=== PATIENT | male | born 1955 | race Caucasian/White ===

== ENCOUNTER 2016-06-18 11:28 | Inpatient (IN) | payer MEDICARE ==
[~2016-06-18] VITALS: Ht 168.9 cm; Wt 54.5 kg
--- NOTE | 2016-06-18 11:31 | NUR ---
PROVIDER DR. SOMMER AT BEDSIDE.
[2016-06-18] MEDS ORDERED: NORMAL SALINE 1,000 ML IV ONE ×2 (11:33→14:15)
--- OUTSIDE RECORDS SUMMARY | 2016-06-18 11:36 | XMS REPORT | Continuity of Care Document ---
Author Author Glenis Rousseau Glenis Address Unknown Phone Unavailable Care Team Providers Care Nursing Technician Name Role Phone [employer] Unavailable Unavailable Problems Problem Status Onset Date Classification Date Reported Comments Source Encounter for general adult medical examination without abnormal findings 06/09/2016 Diagnosis 06/10/2016 [facility] Abnormal weight loss 2016 Diagnosis 06/10/2016 [facility] Dysuria 06/09/2016 Diagnosis 06/10/2016 [facility] Unspecified acquired deformity of hand, unspecified hand 06/09/2016 Diagnosis 06/10/2016 [facility] [place] Discharge Diagnosis: Acute eczema 05/26/2016 Diagnosis [facility] Discharge Diagnosis: Encounter to establish care 05/26/2016 Diagnosis 05/27/2016 [facility] Discharge Diagnosis: Abnormal loss of weight 05/26/2016 Diagnosis 05/27/2016 [facility] Problem 06/10/2016 Family [facility], [facility] Medications Medication Details Route Status Patient Instructions Ordering Provider Order Date Source Advil PM </br>2 Tab, AT BEDTIME, PO, Maintenance, 05/26/16 7:36:01 CDT, 0 Number of Refills Active [facility] Betamethasone 0.5 MG/ML / Clotrimazole 10 MG/ML Topical Cream [Lotrisone] </br>1 Apply, BID, TOP, 14 Day(s), 45 gm, 06/09/16, Acute, 05/26/16 7:55:23 CDT , 0 Number of Refills, 0, Route to Pharmacy Electronically, [facility]/pharmacy #[id number], [id number] Inactive [facility] Allergies, Adverse Reactions, Alerts Substance Category Reaction Severity Reaction type Status Date Reported Comments Source Iodine Assertion Drug [facility] Immunizations Immunization Date Given Site Status Last Updated Comments Source diphtheria/pertussis, acel/tetanus Tdap 02/13/2013 Immunization, History diphtheria /pertussis, acel/[facility]anus [facility], [facility] Results Order Name Results Value Reference Range Date Interpretation Comments Source ANAPRO JUAN LUIS Pattern. See Scanned Report 06/15/2016 N [facility] RA RA Negative Negative 06/09/2016 N [facility] ESR. Sed Rate 3 mm/hr 0 - 15 06/09/2016 N [facility] A1C eAverage Glu 105 06/09/2016 NA Estimated average glucose has a linear relationship with Hgb A1c and is intended to simplify the discussion of glycemic control with patients.
[facility] CHEM12 eGFR () >60 mL/min >=60 2016 N Estimated GFR for an calculated using MDRD study equation. Result Verified by Discern Expert.
[facility] CHEM12 Albumin Level 4.4 gm/ dL 3.4 - 5.0 06/09/2016 N [facility] TSH TSH 0.843 uIU/mL 0.354 - 5.720 06/09/2016 N [facility] PSA, Total Only PSA, Total 4.94 ng/mL 0.00 - 4.00 2016 HI The reference interval is less than 0.2 ng/mL after radical prostatectomy if there is no residual disease. Values greater than or equal to 0.2 ng/mL are considered evidence of biochemical recurrence of cancer in men after prostatectomy. The lower limit of detection is 0.14 ng/mL. The Siemens [employer] Innov[employer] PSA chemiluminescent immunoassay was used. Results obtained with different assay methods cannot be used interchangeably.
[facility] P7 LDLC 28 60 - 99 06/09/2016 LOW [facility] P7 Chol/HDL 1.3 0.0 - 5.0 06/09/2016 N [facility] CRP C Reactive Prot <0.29 mg/ dL 0.00 - 0.90 06/09/2016 N [facility] -RBC Morphology RBC Morph Normal Normal 06/09/2016 N Discern [facility]
RBC morphology is graded as 1, 2 , or 3 indicating a level of abnormality.
1=few /slight
2=moderate
3=marked/many
[facility] -Auto Diff Atypical Lymph 70 06/09/[address] [facility] CBC with Diff Hgb 16.5 gm/dL 13.0 - 17.0 06/09/[address] [facility] Office/Clinic Notes Office/Clinic Notes [facility] [address] [address] [phone] PATIENT: EDUAR HARPER MR #: [id number] : 1955 DATE SEEN: 05/26/2016 Chief Complaint Patient states he is here for a rash on right leg. Patient states he is also here for weight loss. History of Present Illness The patient is a 60-year-old male here for establish care. The patient states that he has a rash on his legs that started about a few weeks ago. It is itchy. He started to put antifungal cream on it. He said that it started to go down a little bit and stopped the itching, but it is still there and it seems to be spreading. The patient states he tries to lotion himself, but the rash continues to grow. The patient also states that he has been losing weight. Usually, he gains weight during the wintertime and then loses weight during the summer, but he has actually lost 30 pounds this winter. The patient states that when he eats, an hour later it goes through. This happened to him 12 years ago and they told him he had a thyroid issue. The patient is concerned that this may be it or something else is making him lose weight unintentionally. Review of Systems Constitutional: Denies fever, chills. Positive weight loss. Cardiovascular: Denies chest pains or palpitations. Pulmonary: Denies shortness of breath or cough. Gastrointestinal: Denies abdominal pain, nausea, vomiting, diarrhea, or constipation. Genitourinary: Denies dysuria or frequency. Rash: Positive rash. Allergies iodine Current Medications Advil PM (diphenhydrAMINE-ibuprofen), 2 Tab, Oral, At bedtime Problems and Past Medical History Active No Chronic Problems Family History Diabetes..... Mother Heart disease.. Grandparent High blood pressure.. Father Liver cancer Grandparent Renal cancer Grandparent Renal failure Mother Procedure History oral surgery at 05/20/2016. gallbladder at 1992. hernia repair at 2009. vein removal at 1976. Tonsillectomy and adenoidectomy; younger than age 11 Social History Tobacco/Nicotine Usage: Current Smoking Status: Smokes daily Tobacco/Nicotine Type: Cigarettes Packs Per Day: 1.5 Number of Years-Tob Use: 9 Total Pack Years: 13.5 Recreational Drug Use: Denies Education Attained: College Physical Examination TEMP BP Pulse RR MAP O2 Sat 124/68 99 18 86.67 100 Oxygen Therapy: Room air Weight Height BMI BSA 53.9 kg (118.83 lbs) 170.2 cm 18.6 kg/m2 1.5963 m2 Scale: Standing digital Skin: Positive erythematous and maculopapular rash. Negative vesicles. Negative discharge. Positive dry skin. Positive multiple circular form in right calf. Negative excoriations. Impression 1. Encounter to establish care (Z76.89). 2. Acute eczema (L30.9). 3. Abnormal loss of weight (R63.4). Plan Medication changes this visit: New Lotrisone 1%-0.05% topical cream, 1 Apply, Topical, BID, 14 Day(s), Quantity: 45 , Refills: 0 For the rash, it looks it is eczematic in nature. We will give him Lotrisone cream to help with the rash. The patient advised to do it twice a day for 2 weeks and to find a good moisturizer for his skin. As for his weight loss, we will need to rule out any cancerous etiology or metabolic etiology. We will check, of course, for his thyroid along with a hemoglobin A1c and a PSA to rule out any other etiologies for his weight loss. The patient will follow back up for a physical in 2 weeks. The patient is agreeable to plan. Reviewed ambulatory nursing intake notes from today. No changes. TR: [id number] PRAFUL#: [id number] [Electronically Signed on 05.26.2016 04:39 PM]
Stacy Koo DO
</br> 05/26/2016 [Electronically Signed on 05.26.2016 04:39 PM] Stacy Koo, DO [facility] Vital Signs Encounters Location Location Details Encounter Type Encounter Number Reason For Visit Attending Provider ADM Date DC Date Status Source [facility] at [address] [id number] EST CARE, GIANNA R LEG Stacy [facility] 05/26/2016 Active [facility] [id number] St[facility] 05/26/2016 [facility] [address] [id number] MEDICARE WELLNESS [facility] 06/09/2016 Active [facility] [id number] [facility] 06/09/2016 [facility] at [address] [id number] RA Rosangela Fabian Active [facility] Procedures Procedure Code Date Perfomer Comments Source No data available for this section [facility] Plan of Care Social History Assessment and Plan Family History Value Date Source Advance Directives Order Name Results Value Date Source
--- OUTSIDE RECORDS SUMMARY | 2016-06-18 11:36 | XMS REPORT | Summary of Care ---
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 Attending Physician: Stacy Koo DO Vital Signs No data available for this section Problem List No Known Problems Allergies, Adverse Reactions, Alerts Substance Reaction Severity Status iodine Active Medications Advil PM 2 Tab, AT BEDTIME, PO, Maintenance, 05/26/16 7:36:01 CDT, 0 Number of Refills Start Date: 05/26/16 Status: Ordered Results No data available for this section Immunizations Given and Recorded Vaccine Date Status Refusal Reason diphtheria/pertussis, acel/tetanus Tdap 02/13/13 Given Procedures No data available for this section Social History No data available for this section Assessment and Plan No data available for this section
--- OUTSIDE RECORDS SUMMARY | 2016-06-18 11:36 | XMS REPORT | Summary of Care ---
Author Author [facility] Organization [facility] Address Unknown Phone Unavailable Care Team Providers Care Igniter Assembler Name Role Phone None, Stated Primary Care Physician Unavailable Encounter PF Date(s): 05/26/16 [facility] [address] [place] [address] [facility] [phone] Discharge Diagnosis: Acute eczema Discharge Diagnosis: Encounter to establish care Discharge Diagnosis: Abnormal loss of weight Attending Physician: Stacy Koo DO Vital Signs No data available for this section Problem List No Known Problems Allergies, Adverse Reactions, Alerts Substance Reaction Severity Status iodine Active Medications Advil PM 2 Tab, AT BEDTIME, PO, Maintenance, 05/26/16 7:36:01 CDT, 0 Number of Refills Start Date: 05/26/16 Status: Ordered Lotrisone 1%-0.05% topical cream 1 Apply, BID, TOP, 14 Day(s), 45 gm, 06/09/16, Acute, 05/26/16 7:55:23 CDT, 0 Number of Refills, 0, Route to Pharmacy Electronically, [facility]/pharmacy #[id number], [id number] Start Date: 05/26/16 Stop Date: 06/09/16 Status: Ordered Results No data available for this section Immunizations Given and Recorded Vaccine Date Status Refusal Reason diphtheria/pertussis, acel/tetanus Tdap 02/13/13 Given Procedures No data available for this section Social History No data available for this section Assessment and Plan No data available for this section
--- OUTSIDE RECORDS SUMMARY | 2016-06-18 11:52 | XMS REPORT | Continuity of Care Document ---
Author Author Glenis Rousseau Glenis Address Unknown Phone Unavailable Care Team Providers Care Jack Strip Assembler Name Role Phone [employer] Unavailable Unavailable Problems Problem Status Onset Date Classification Date Reported Comments Source Encounter for general adult medical examination without abnormal findings 06/09/2016 Diagnosis 06/10/2016 [facility] [place] [facility] Abnormal weight loss 2016 Diagnosis 06/10/2016 [facility] Dysuria 06/09/2016 Diagnosis 06/10/2016 [facility] Unspecified acquired deformity of hand, unspecified hand 06/09/2016 Diagnosis 06/10/2016 [facility] [place] [facility] Discharge Diagnosis: Acute eczema 05/26/2016 Diagnosis [facility] Discharge Diagnosis: Encounter to establish care 05/26/2016 Diagnosis 05/27/2016 [facility] Discharge Diagnosis: Abnormal loss of weight 05/26/2016 Diagnosis 05/27/2016 [facility] Problem 06/10/2016 Family [facility], [facility] Medications Medication Details Route Status Patient Instructions Ordering Provider Order Date Source Advil PM </br>2 Tab, AT BEDTIME, PO, Maintenance, 05/26/16 7:36:01 CDT, 0 Number of Refills Active [facility] Betamethasone 0.5 MG/ML / Clotrimazole 10 MG/ML Topical Cream [Lotrisone] </br>1 Apply, BID, TOP, 14 Day(s), 45 gm, 06/09/16, Acute, 05/26/16 7:55:23 CDT , 0 Number of Refills, 0, Route to Pharmacy Electronically, [facility]/pharmacy #[id number], [id number] Inactive [facility] Allergies, Adverse Reactions, Alerts Substance Category Reaction Severity Reaction type Status Date Reported Comments Source Iodine Assertion Drug [facility] Immunizations Immunization Date Given Site Status Last Updated Comments Source diphtheria/pertussis, acel/tetanus Tdap 02/13/2013 Immunization, History diphtheria /pertussis, ac[facility] Results Order Name Results Value Reference Range Date Interpretation Comments Source ANAPRO JUAN LUIS Pattern. See Scanned Report 06/15/2016 N [facility] RA RA Negative Negative 06/09/2016 N [facility] ESR. Sed Rate 3 mm/hr 0 - 15 06/09/2016 N [facility] A1C eAverage Glu 105 06/09/2016 NA Estimated average glucose has a linear relationship with Hgb A1c and is intended to simplify the discussion of glycemic control with patients.
[facility] CHEM12 eGFR () >60 mL/min >=60 2016 N Estimated GFR for an calculated using MDRD study equation. Result Verified by Discern Expert.
[facility] CHEM12 Albumin Level 4.4 gm/ dL 3.4 - 5.0 06/09/2016 N [facility] TSH TSH 0.843 uIU/mL 0.354 - 5.720 06/09/2016 N [facility] PSA, Total Only PSA, Total 4.94 ng/mL 0.00 - 4.00 2016 HI The reference interval is less than 0.2 ng/mL after radical prostatectomy if there is no residual disease. Values greater than or equal to 0.2 ng/mL are considered evidence of biochemical recurrence of cancer in men after prostatectomy. The lower limit of detection is 0.14 ng/mL. The Siemens Inm[employer]aur PSA chemiluminescent immunoassay was used. Results obtained with different assay methods cannot be used interchangeably.
[facility] P7 LDLC 28 60 - 99 06/09/2016 LOW [facility] P7 Chol/HDL 1.3 0.0 - 5.0 06/09/2016 N [facility] CRP C Reactive Prot <0.29 mg/ dL 0.00 - 0.90 06/09/2016 N [facility] -RBC Morphology RBC Morph Normal Normal 06/09/2016 N [facility]
RBC morphology is graded as 1, 2 , or 3 indicating a level of abnormality.
1=few /slight
2=moderate
3=marked/many
[facility] -Auto Diff Atypical Lymph 70 06/09/2016 NA [facility] CBC with Diff Hgb 16.5 gm/dL 13.0 - 17.0 06/09/2016 N [facility] Office/Clinic Notes Office/Clinic Notes [facility] [address] [address] [phone] PATIENT: EDUAR HARPER MR #: [id number] : 1955 DATE SEEN: 05/26/2016 Chief Complaint [...] intake notes from today. No changes. TR: [id number] PRAFUL#: [id number] [Electronically Signed on 05.26.2016 04:39 PM]
Stacy Koo DO
</br> 05/26/2016 [Electronically Signed on 05.26.2016 04:39 PM] Stacy Koo, DO [facility] Vital Signs Encounters Location Location Details Encounter Type Encounter Number Reason For Visit Attending Provider ADM Date DC Date Status Source [facility] at [address] [id number] EST CARE, GIANNA R LEG [facility] 05/26/2016 Active [facility] [id number] [facility] 05/26/2016 [facility] [address] [id number] MEDICARE WELLNESS [facility] 06/09/2016 Active [facility] [id number] [facility] 06/09/2016 [facility] [place] [facility] at [address] [id number] RA Rosangela Fabian Active [facility] Procedures Procedure Code Date Perfomer Comments Source No data available for this section [facility] [place] [facility] Plan of Care Social History Assessment and Plan Family History Value Date Source Advance Directives Order Name Results Value Date Source
[2016-06-18 11:59] LABS: HCT - HEMATOCRIT 35.8 % (41-53); HGB - HEMOGLOBIN 13.7 GM/DL (13.5-17.5); MEAN CORPUSCULAR HGB 34.5 UUG (26-34); MEAN CORPUSCULAR HGB CONC(MCHC 38.3 GM/DL (31-37); MEAN CORPUSCULAR VOLUME 90.2 UM3 (80-100); MEAN PLATELET VOLUME 9.5 UM3 (9.4-12.4); RED BLOOD COUNT 3.97 M/MM3 (4.50-5.90); WBC - WHITE BLOOD COUNT 9.4 T/MM3 (4.5-11.0)
--- NOTE | 2016-06-18 12:03 | NUR ---
RADIOLOGY PT TO RADIOLOGY BY CART AT THIS TIME.
[2016-06-18 12:06] LABS: ALBUMIN 4.2 G/DL (3.5-5.0); ALBUMIN/GLOBULIN RATIO 1.8 RATIO (1.1-2.2); ALKALINE PHOSPHATASE 65 U/L (38-126); ALT (SGPT) 75 U/L (21-72); ANION GAP 12 MEQ/L (5-15); AST (SGOT) 55 U/L (17-59); BUN/CREATININE RATIO 8 RATIO (6-26); CALCIUM 8.6 MG/DL (8.4-10.2); CHLORIDE 78 MEQ/L (98-107); CO2 - CARBON DIOXIDE 21 MEQ/L (22-30); CREATININE 0.5 MG/DL (0.8-1.5); GLOMERULAR FILTRATION RATE 169; GLUCOSE 135 MG/DL (75-110); POTASSIUM 3.9 MEQ/L (3.6-5); TOTAL PROTEIN 6.6 G/DL (6.3-8.2)
--- NOTE | 2016-06-18 12:12 | ERPDOC ---
Departure Disposition Decision Date: June 18, 2016 Disposition Decision Time: 13:28 (KURT MENEZES APRN) Disposition: 02 TO [facility] [place] [facility] Impression Impression (KURT MENEZES APRN) Impression: Primary Impression: Hyponatremia with decreased serum osmolality Additional Impression: LLQ abdominal pain Severity: Moderate (KURT MENEZES APRN) Condition: Stable Seen By: Mid-level only (KURT MENEZES APRN) Problems/Meds/Labs Reviewed?: Yes Medications reviewed and manag: Yes (KURT MENEZES APRN) Follow up care ordered?: Yes Mental Status: Alert (KURT MENEZES APRN) HPI - Syncope General Chief Complaint: Dizzy Stated Complaint: DISSINESS, WEAKNESS Time Seen by Provider: 12:12 Source: patient (KURT MENEZES APRN) Time Seen by Provider: 11:33 (JUNEMARILU DO) HPI - Syncope Initial Comments 60 YO M brought to ED for dizziness and LLQ pain. 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 Stopped to get gas and was too dizzy and weak to get out of his truck. Called EMS. Patient says that he started taking Flomax on 06-13-16 and has not felt right since starting medication. Began to feel dizzy on 06-15-16. Two days ago developed LLQ abdominal pain that radiates to left groin. Says pain is similar to pain prior to hernia repair on left side. Patient also reports that he has had bilateral tingling in his hand for past 24 hours. Last BM this morning which was his normal pattern. Admits nausea and dribbling with urination. Denies fever, chills, SOA, CP, cough, vomiting, diarrhea, constipation or dysuria. Pain Scale: Now: 7/10 (LLQ abdominal pain) Symptoms Prior to Episode: lightheadedness Loss of Consciousness: no loss of consciousness Current Symptoms: dizziness, DENIES: blurred vision, chest pain, diaphoresis, headache, injury, lightheadedness, shallow/rapid breathing, weak/absent pulse, weakness (KURT MENEZES APRN) Allergies: Coded Allergies: iodine (Verified Allergy, Severe, HIVES AND THROAT SWELLING, 06/18/16) Past History Past Medical History Metabolic: DENIES: diabetes, hypertension Cardiac: DENIES: angina Respiratory: DENIES: COPD, asthma GI: DENIES: ulcers Male: UTI, DENIES: renal insufficiency Neurological: DENIES: CVA, TIA, headaches, migraines, seizures Musculoskeletal: DENIES: osteoarthritis Psychological: DENIES: depression (NARCISO MENEZESS Albert DELIVERY CLERK) Surgical History General: hernia (KURT MENEZES DELIVERY CLERK) Family History Family PMH: FOUND: other (noncontributory) (KURT MENEZES DELIVERY CLERK) Social History Smoking Status: Current every day smoker # of Packs/Tins per Day: 1.5 Current Occupational Status: employed (KURT MENEZES DELIVERY CLERK) Review of Systems Constitutional Constitutional: dizziness, DENIES: chills, fever, weakness (NARCISO MENEZESS A DELIVERY CLERK) Eyes General: DENIES: erythema, exudate Lids/Accessories: DENIES: erythema, swelling (KURT MENEZES A DELIVERY CLERK) ENMT Ears: DENIES: pain Sinuses: DENIES: congestion, rhinorrhea Mouth/Throat: DENIES: sore throat (NARCISO MENEZESS A DELIVERY CLERK) Cardiovascular Cardiac: DENIES: chest pain, murmur Rhythm/Rate: DENIES: palpitations (NARCISO MENEZESS A DELIVERY CLERK) Pulmonary Respiratory: DENIES: cough, dyspnea (NARCISO MENEZESS A DELIVERY CLERK) GI Upper Abdomen: DENIES: nausea, pain, vomiting Lower Abdomen: pain, see HPI, DENIES: diarrhea (NARCISO MENEZESS A DELIVERY CLERK) General: DENIES: dysuria, pain (NARCISO MENEZESS A DELIVERY CLERK) Musculoskeletal General: DENIES: joint pain, pain, tenderness (NARCISO MENEZESS A DELIVERY CLERK) Integumentary Skin: DENIES: color change, itching, rash (NARCISO MENEZESS A DELIVERY CLERK) Neurological General: see HPI, tingling, DENIES: ataxia, change in strength, paralysis/ paresis, weakness (NARCISO MENEZESS A DELIVERY CLERK) Psychiatric Psychiatric: DENIES: anxiety, depression, nervousness (NARCISO MENEZESS A DELIVERY CLERK) Physical Exam General General Nourishment: well nourished, well developed, adult General Body Habitus: disheveled (NARCISO MENEZESS A DELIVERY CLERK) Vitals and Pain Weight: Kilograms: Height (feet): Height (inches): Triage Pain Scale: (NARCISO MENEZESS A DELIVERY CLERK) Eyes (brief) Eyes Brief: found: EOMI, PERRL (MENEZES,KURT A DELIVERY CLERK) Eyes Abnormal Movement: NOT FOUND: nystagmus (MENEZES,KURT A DELIVERY CLERK) ENMT (brief) ENMT Brief: FOUND: TM clear, TM good light reflex, mucosa moist, NOT FOUND: nasal exudate, nasal swelling, pharnyx erythema (MENEZES,KURT A DELIVERY CLERK) Neck (brief) Neck: FOUND: trachea midline, NOT FOUND: adenopathy, tenderness, thyromegaly ( MENEZES,KURT A DELIVERY CLERK) Respiratory (brief) Respiratory: FOUND: clear all salazar, equal bilaterally, other (RR 22), symmetrical (MENEZES,KURT A DELIVERY CLERK) Respiratory Inspection: NOT FOUND: accessory muscle use, increased effort (MENEZES,KURT A DELIVERY CLERK) Cardiovascular Auscultation: FOUND: S1, S2, rate (94), regular (MENEZES,KURT A DELIVERY CLERK) Abdomen Inspection: NOT FOUND: distention Palpation: FOUND: soft, tender (LLQ), voluntary guarding, NOT FOUND: Rosving's sign, hepatomegaly, involuntary guarding, rebound, splenomegaly Auscultation: FOUND: normoactive (x4) (MENEZES,KURT A DELIVERY CLERK) Musculoskeletal (brief) Musculoskeletal Brief: NOT FOUND: deformity, loss of motion (MENEZES,KURT A DELIVERY CLERK) Integumentary (brief) Integumentary Brief: FOUND: dry, pink, warm (MENEZES,KURT A DELIVERY CLERK) Neurologic (brief) Neurological Brief: FOUND: CN w/o gross def to obs (MENEZES,KURT A DELIVERY CLERK) Neurologic Mental Status: FOUND: alert, oriented (x3) Cranial Nerves: NOT FOUND: facial asymmetry Motor : Motor Location: foot extension, foot flexion, granulator tender strength Motor Degree: 5 Sensation: FOUND: soft touch intact x4 ext Cerebellar: FOUND: tandem walk DTR's : DTR Location: Triceps, Patellar DTR Grade: 2+ (MENEZES,KURT A DELIVERY CLERK) Psychiatric (brief) Psychiatric Brief: FOUND: attentive (MENEZES,KURT A DELIVERY CLERK) Differential Diagnoses Differential Diagnoses Considering: Acute NE/Ischemia, Bradycardia, Cardiac Dysrhythmia, CVA - Hemorrhagic, Hypoglycemia, Long QT Syndrome, Medication Effect, Orthostatic Hypotension, TIA, UTI, Other (hyponatremia) Considering: Bowel Obstruction, Constipation, Diverticulitis, Gastroenteritis, Ileus, Ulcer, Volvulus (KURT MENEZES APRN) Progress Results/Orders Orders Procedure Category Date Status Time Iv Lock (Ed Only) EDM 06/18/16 Transmitted 11:33 Orthostatic Bp/Pulse EDM 06/18/16 Transmitted 11:33 Bgm (Ed) EDM 06/18/16 Transmitted 11:33 Cbc W/Auto LAB 06/18/16 Complete Diff-Reflex Manual 11:33 Cmp - Comprehensive LAB 06/18/16 Complete Metabolic 11:33 Troponin I W LAB 06/18/16 Complete Hemolysis Index 11:33 Ua, Dip Wreflex LAB 06/18/16 Complete Microsc & [employer] Draftsman 11:33 EKG EKG 06/18/16 Taken 11:33 Chest, Pa & Lateral RAD 06/18/16 Resulted 11:33 Normal Saline (Normal PHA 06/18/16 Complete Saline Iv) 11:33 Ondansetron Inj PHA 06/18/16 Complete (Zofran) 12:30 Hydromorphone PHA 06/18/16 Complete (Dilaudid) 12:30 Ct Renal W/O Contrast CT 06/18/[address] Head W/O Contrast CT 06/18/16 Resulted Normal Saline (Normal PHA 06/18/16 Complete Saline Iv) 14:15 Place In Facility As: ADMIT 06/18/16 Transmitted 15:08 (JUNE,[facility] DO) Lab Results Laboratory Tests Test 06/18/16 11:14 06/18/16 14:52 White Blood Count 9.4T/MM3 Red Blood Count 3.97M/MM3 Hemoglobin 13.7GM/DL Hematocrit 35.8% Mean Corpuscular Volume 90.2UM3 Mean Corpuscular Hemoglobin 34.5UUG Mean Corpuscular Hemoglobin Concent 38.3GM/DL RDW Standard Deviation 36.7FL Platelet Count 214T/MM3 Mean Platelet Volume 9.5UM3 Immature Granulocyte % (Auto) % Neutrophils (%) (Auto) % Lymphocytes (%) (Auto) % Monocytes (%) (Auto) % Eosinophils (%) (Auto) % Basophils (%) (Auto) % Absolute Immature Granulocyte (auto T/MM3 Absolute Neutrophils (auto) T/MM3 Absolute Lymphocytes (auto) T/MM3 Absolute Monocytes (auto) T/MM3 Absolute Eosinophils (auto) T/MM3 Absolute Basophils (auto) T/MM3 Neutrophils % (Manual) 88.0% Band Neutrophils % 4.0% Lymphocytes % (Manual) 5.0% Monocytes % (Manual) 3.0% Absolute Neutrophils (Manual) 8.3T/MM3 Band Neutrophils # 0.4T/MM3 Lymphocytes # (Manual) 0.5T/MM3 Monocytes # (Manual) 0.3T/MM3 Red Cell Morphology Comment Normal Turbidity < 20 Sodium Level 111MEQ/L Potassium Level 3.9MEQ/L Chloride Level 78MEQ/L Carbon Dioxide Level 21MEQ/L Anion Gap 12MEQ/L Blood Urea Nitrogen 4.0MG/DL Creatinine 0.5MG/DL Glomerular Filtration Rate Calc 169 BUN/Creatinine Ratio 8RATIO Glucose Level 135MG/DL Calculated Osmolality 214MOSM/KG Calcium Level 8.6MG/DL Total Bilirubin 1.10MG/DL Icterus Index < 2 Aspartate Amino Transf (AST/SGOT) 55U/L Alanine Aminotransferase (ALT/SGPT) 75U/L Alkaline Phosphatase 65U/L Troponin I < 0.012ng/ml Total Protein 6.6G/DL Albumin 4.2G/DL Globulin 2.4G/DL Albumin/Globulin Ratio 1.8RATIO Chemistry Specimen Hemolysis < 15 Urine Collection Type Cleancatch-midstream Urine Color Yellow Urine Turbidity Clear Urine pH 6.5 Urine Specific [place] 1.010 Urine Protein Negative Urine Glucose (UA) Negative Urine Ketones 1+ Urine Blood Trace-intact Urine Nitrite Negative Urine Bilirubin Negative Urine Urobilinogen 0.2EU/DL Urine Leukocyte Esterase Negative Urinalysis Comment Microscopic not ind. (JUNE,MARILU M DO) Medications Current ED Medications Sodium Chloride (Normal Saline IV) 1,000 ml @ 0 mls/hr Q0M ONCE IV ; Start 06/18 at 11:33; Stop 06/18/16 at 11:36; Status DC Ondansetron HCl (Zofran) 4 mg O ONCE IV Last administered on 06/18/16 12:58; Start 06/18/16 at 12:30; Stop 06/18/16 at 12:31; Status DC Hydromorphone HCl 0.5 mg 0.5 mg O ONCE IV Last administered on 06/18/16 13:01 ; Start 06/18/16 at 12:30; Stop 06/18/16 at 12:31; Status DC Sodium Chloride (Normal Saline IV) 1,000 ml @ 125 mls/hr Q8H ONCE IV Last administered on 06/18/16t 14:11; Start 06/18/16 at 14:15; Stop 06/18/16 at 22:14; Status DC (JUNE,MARILU M DO) Progress Progress CBC unremarkable NA 111 with osmolality 214 ALT 75 Other chemistries unremarkable Troponin <1.012 Patient reports improvement in pain after dilaudid. I discussed labs and CT findings with patient and need for admission which he agrees with. Patient denies ever having a spinal injection (KURT MENEZES APRN) Consult/PCP Consult/PCP #1: Time Called: 13:25 Type of discussion: Admit Discussion/PCP Discussion Details I discussed patient's HPI, past medical history, vital signs, CT findings, treatment in the ER and exam findings with Dr. Sam. Dr. Sam said that he would admit but would like CT of head. Dr. Sam called back with CT head results. Dr. Sam said he spoke with Dr. Dudley and she would like a neurology consulted regarding air in spinal canal before accepting. Dr. Sam called back at 1448 to discussed conversation I had with Dr. Fegruson ( see below). Consult/PCP #2: Time Called: 14:27 Time of first response: 14:35 Type of discussion: Phone Consult/PCP Discussion Details I discussed patient's HPI, past medical history, vital signs, CT findings, exam findings and treatment in in the ER with Dr. Zuñiga neurologist at [facility]. Dr. somers says that he has never heard of anything like ear in the spinal canal. States that I need to speak with a neuro surgeon. Consult/PCP #3: Time Called: 14:35 Type of discussion: Phone Consult/PCP Discussion Details I discussed patient's HPI, past medical history, vital signs, labs, exam findings and CT findings of head and abdomen with Dr. Ferguson neurosurgeon at [facility]. I discussed specifically CT of abdomen with finding of small locule of air in the spinal canal anteriorly at the L5 level. Dr. Ferguson said that patient should have a contrast and noncontrast MRI of spine but does not believe this is anything acute and MRI does not need to be emergent. Dr. Ferguson said that he feels that they will probably find this to be a small fluid cyst. If after doing MRI there is any concerns he can be contacted. (KURT MENEZES APRN) CT CT #1: CT: Head no contrast (No acute intracranial findings ) Interpretation: Faxed Report CT #2: CT: Renal no contrast (small locule of air in spinal cord at L-5 level, no acute abdominal findings) Interpretation: Faxed Report (KURT MENEZES APRN) KURT MENEZES APRN June 18, 2016 12:12 JUNE,MARILU Jacobsen DO June 23, 2016 06:05
--- NOTE | 2016-06-18 12:14 | NUR ---
RETURN PT RETURNED FROM RADIOLOGY BY CART AT THIS TIME.
[2016-06-18 12:15] LABS: BAND NEUTROPHILS # 0.4 T/MM3; LYMPHOCYTES # (MANUAL) 0.5 T/MM3 (1-4.8); MONOCYTES # (MANUAL) 0.3 T/MM3 (0-0.8); NEUTROPHILS #(MANUAL)-ABSOLUTE 8.3 T/MM3 (1.8-7.7); TOTAL CELLS COUNTED 100 %
[2016-06-18 12:19] LABS: SODIUM 111 MEQ/L (134-144)
--- NOTE | 2016-06-18 12:20 | NUR ---
PROVIDER Sergio MENEZES APRN AT BEDSIDE.
[2016-06-18] MEDS ORDERED: ONDANSETRON 4mg/2ml INJECTION IV ONE (12:30)
[2016-06-18] MEDS ORDERED: HYDROMORPHONE 2mg/ml INJECTION IV ONE (12:30)
--- NOTE | 2016-06-18 12:35 | NUR ---
STATUS PT ASSISTED INTO CLEAN CLOTHING AND SHEETS AFTER EPISODE OF URINE INCONTINENCE. PT REPORTS STILL FEELS NEED TO VOID. PT UNSTEADY, WITH SWAY STANDING AT BEDSIDE ACCOMP BY THIS RN TO ATTEMPT UNSUCCESSFUL VOID. PT ASSISTED BACK INTO BED WITH CALL LIGHT WITHIN REACH.
--- NOTE | 2016-06-18 12:45 | NUR ---
CT PT TO CT BY CART AT THIS TIME.
--- NOTE | 2016-06-18 12:51 | NUR ---
RETURN PT RETURNED FROM CT BY CART AT THIS TIME.
--- NOTE | 2016-06-18 14:00 | NUR ---
CT PT TO CT BY CART AT THIS TIME.
--- NOTE | 2016-06-18 14:06 | NUR ---
RETURN PT RETURNED FROM CT BY CART AT THIS TIME.
--- NOTE | 2016-06-18 14:49 | NUR ---
PROVIDER DR. EKVIN AT BEDSIDE.
[2016-06-18] MEDS ORDERED: [UNRECOGNIZED DRUG - OTHER] PO (14:55)
[2016-06-18] MEDS ORDERED: TAMS-1 PO (14:55)
[2016-06-18 14:56] LABS: BLOOD, URINE TRACE-INTACT (NEGATIVE); COLOR,URINE YELLOW (YELLOW); LEUKOCYTE ESTERASE ,URINE NEGATIVE (NEGATIVE); NITRITE,URINE NEGATIVE (NEGATIVE); UROBILINOGEN,URINE 0.2 EU/DL (NORMAL)
--- NOTE | 2016-06-18 15:12 | NUR ---
REPORT CALLED TO VERA VILLANUEVA ON MEDICAL UNIT. DENIES QUESTIONS.
--- OUTSIDE RECORDS SUMMARY | 2016-06-18 15:19 | XMS REPORT | Continuity of Care Document ---
Author Author Glenis Rousseau [place] Address Unknown Phone Unavailable Care Team Providers Care Concert Pianist Name Role Phone [employer] Unavailable Unavailable Problems Problem Status Onset Date Classification Date Reported Comments Source Encounter for general adult medical examination without abnormal findings 06/09/2016 Diagnosis 06/10/2016 [facility] Abnormal weight loss 2016 Diagnosis 06/10/2016 [facility] Dysuria 06/09/2016 Diagnosis 06/10/2016 [facility] Unspecified acquired deformity of hand, unspecified hand 06/09/2016 Diagnosis 06/10/2016 [facility] Discharge Diagnosis: Acute eczema 05/26/2016 Diagnosis [facility] Discharge Diagnosis: Encounter to establish care 05/26/2016 Diagnosis 05/27/2016 [facility] Discharge Diagnosis: Abnormal loss of weight 05/26/2016 Diagnosis 05/27/2016 [facility] Problem 06/10/2016 Family [facility], [facility] Medications Medication Details Route Status Patient Instructions Ordering Provider Order Date Source Advil PM </br>2 Tab, AT BEDTIME, PO, Maintenance, 05/26/16 7:36:01 CDT, 0 Number of Refills Active [facility] Betamethasone 0.5 MG/ML / Clotrimazole 10 MG/ML Topical Cream [Lotrisone] </br>1 Apply, BID, TOP, 14 Day(s), 45 gm, 06/09/16, Acute, 05/26/16 7:55:23 CDT , 0 Number of Refills, 0, Route to Pharmacy Electronically, [facility]/pharmacy #[id number], [id number] Inactive [facility] Allergies, Adverse Reactions, Alerts Substance Category Reaction Severity Reaction type Status Date Reported Comments Source Iodine Assertion [facility], [facility] Immunizations Immunization Date Given Site Status Last Updated Comments Source diphtheria/pertussis, acel/tetanus Tdap 02/13/2013 Immunization, History diphtheria /pertussis, acel/tetanus Tdap [facility] Results Order Name Results Value Reference Range Date Interpretation Comments Source ANAPRO JUAN LUIS Pattern. See Scanned Report 06/15/2016 N [facility] RA RA Negative Negative 06/09/2016 N [facility] ESR. Sed Rate 3 mm/hr 0 - 15 06/09/2016 N [facility] A1C eAverage Glu 105 06/09/2016 NA Estimated average glucose has a linear relationship with Hgb A1c and is intended to simplify the discussion of glycemic control with patients.
[facility] CHEM12 eGFR () >60 mL/min >=60 2016 N Estimated GFR for an calculated using MDRD study equation. Result Verified by Discern Expert.
[facility] CHEM12 Albumin Level 4.4 gm/ dL 3.4 - 5.0 06/09/2016 N [facility] TSH TSH 0.843 uIU/mL 0.354 - 5.720 06/09/2016 N [facility] PSA, Total Only PSA, Total 4.94 ng/mL 0.00 - 4.00 2016 HI The reference interval is less than 0.2 ng/mL after radical prostatectomy if there is no residual disease. Values greater than or equal to 0.2 ng/mL are considered evidence of biochemical recurrence of cancer in men after prostatectomy. The lower limit of detection is 0.14 ng/mL. The Siemens OneSource Virtualaur PSA chemiluminescent immunoassay was used. Results obtained with different assay methods cannot be used interchangeably.
[facility] P7 LDLC 28 60 - 99 06/09/2016 LOW [facility] P7 Chol/HDL 1.3 0.0 - 5.0 06/09/2016 N [facility] CRP C Reactive Prot <0.29 mg/ dL 0.00 - 0.90 06/09/2016 N [facility] -RBC Morphology RBC Morph Normal Normal 06/09/2016 N Discern Expert
RBC morphology is graded as 1, 2 , or 3 indicating a level of abnormality.
1=few /slight
2=moderate
3=marked/many
[facility] -Auto Diff Atypical Lymph 70 06/09/2016 NA [facility] CBC with Diff Hgb 16.5 gm/dL 13.0 - 17.0 06/09/2016 N [facility] Office/Clinic Notes Office/Clinic Notes [facility] [address] [address] [phone] PATIENT: EDUAR HARPER MR #: [id number] : 1955 DATE SEEN: 05/26/2016 Chief Complaint [...] intake notes from today. No changes. TR: [id number] PRAFUL#: [id number] [Electronically Signed on 05.26.2016 04:39 PM]
Stacy Koo DO
</br> 05/26/2016 [Electronically Signed on 05.26.2016 04:39 PM] Stacy Koo, DO [facility] Vital Signs Encounters Location Location Details Encounter Type Encounter Number Reason For Visit Attending Provider ADM Date DC Date Status Source [facility] at [address] [id number] EST CARE, GIANNA R LEG Stacy [facility] 05/26/2016 Active [facility] [id number] Stacy [facility] 05/26/2016 [facility] [address] [id number] MEDICARE WELLNESS Stacy [facility] 06/09/2016 Active [facility] [id number] Stacy [facility] 06/09/2016 [facility] at [address] [id number] RA Rosangela Fabian Active [facility] Procedures Procedure Code Date Perfomer Comments Source No data available for this section [facility] [place] Plan of Care Social History Assessment and Plan Family History Value Date Source Advance Directives Order Name Results Value Date Source
--- NOTE | 2016-06-18 15:20 | NUR ---
Admit Patient admitted to medical room. Seizure precautions implemented. Bed alarm on. Patient breathing comfortably on RA. Pain to hands, back, and knees. [place] to be given. Tele is SR-ST. Patient feels extremely hot. Complains of nausea, too early for zofran.
[2016-06-18 15:24] VITALS: Ht 168.9 cm; Wt 54.5 kg
[2016-06-18 15:29] VITALS: BP 151/88; PULSE 97; RESP 22; TEMP 96.3; O2SAT 96
[2016-06-18] MEDS: NORMAL SALINE 1,000 ML IV SCH (15:41)
--- NOTE | 2016-06-18 15:41 | HPPDOC ---
HPI - Adult Date DATE: 06/18/16 TIME: 15:15 General Chief Complaint: 60-year-old gentleman with weakness and confusion. History of Present Illness 60-year-old gentleman with weakness and confusion. He was trying to drive home to [place], noted that his hands and feet were tingling and that he felt like he is going to pass out. He stopped to get gas and could not get out of the car due to weakness. He was brought into ED by EMS. Patient denies any fever or chills, no recent illness. She did however have a physical exam with his physician about 2 weeks ago and was started on Flomax for enlarged prostate , he is being worked up for prostate cancer at this time. He also started an herbal supplement called "Ageless men". He does have some nausea but denies any vomiting. Left-sided lower quadrant into pelvis is painful, radiating down towards his groin. This is the same place had a previous hernia repair and feels the same as the previous hernia . He is extremely thirsty right now and is asking for a glass of water. He states that he feels like he has [place] has had increase how much he drinks. He initially denied drinking alcohol, but ultimately admitted to drinking a sixpack or sixpack and a half per week. Past Medical History Current Medications Home Meds Reported Medications [Ageless Men] No Conflict Check, 1 TAB PO DAILY 06/18/16 Tamsulosin HCl (Flomax) 0.4 Mg Capsule, 0.4 MG PO HS, CAP Take 1 capsule, by mouth, one time a day at BEDTIME. 06/18/16 Allergies: Coded Allergies: iodine (Verified Allergy, Severe, HIVES AND THROAT SWELLING, 06/18/16) Family History Family History: Hypertension Social History Smoking Status: Current every day smoker Substance Use Type: does not use Alcohol Intake: 2+ drinks per day Review of Systems Cardiovascular orthopnea Rhythm/Rate: tachycardia GI Upper Abdomen: nausea, pain, DENIES: food intolerances All Other Systems All Other Systems: Reviewed Physical Exam General General Nourishment: thin, adult General Body Habitus: disheveled Vital Signs Vital Signs Date Time Temp Pulse Resp B/P Pulse Ox O2 Delivery O2 Flow Rate FiO2 06/18/16 14:00 24 06/18/16 11:30 97.5 96 142/85 96 Room Air Height (Feet): 5 Height (Inches): 6.50 Telemetry Rhythm: Sinus Rhythm Eyes Brief: FOUND: EOMI, PERRL, NOT FOUND: scleral icterus ENMT Brief: FOUND: TM clear, TM good light reflex Neck Brief: NOT FOUND: adenopathy, carotid bruits, thyromegaly Cardiovascular (brief) Cardiac Brief: FOUND: regular rate, regular rhythm, NOT FOUND: pedal edema Abdomen (brief) Abdominal Brief: FOUND: BS normo active x4, soft, NOT FOUND: tender Neurologic (brief) Neurological Brief: FOUND: DTR 2/4 all extremities, cranial 2-12 intact, motor (slight tremor at rest.), sensory Neurologic RN Documented GCS Eye Opening: Verbal: Motor: Total: Psychiatric (brief) FOUND: alert, oriented Laboratory Laboratory Tests Test 06/18/16 11:14 06/18/16 14:52 White Blood Count 9.4T/MM3 Red Blood Count 3.97M/MM3 Hemoglobin 13.7GM/DL Hematocrit 35.8% Mean Corpuscular Volume 90.2UM3 Mean Corpuscular Hemoglobin 34.5UUG Mean Corpuscular Hemoglobin Concent 38.3GM/DL RDW Standard Deviation 36.7FL Platelet Count 214T/MM3 Mean Platelet Volume 9.5UM3 Immature Granulocyte % (Auto) % Neutrophils (%) (Auto) % Lymphocytes (%) (Auto) % Monocytes (%) (Auto) % Eosinophils (%) (Auto) % Basophils (%) (Auto) % Absolute Immature Granulocyte (auto T/MM3 Absolute Neutrophils (auto) T/MM3 Absolute Lymphocytes (auto) T/MM3 Absolute Monocytes (auto) T/MM3 Absolute Eosinophils (auto) T/MM3 Absolute Basophils (auto) T/MM3 Neutrophils % (Manual) 88.0% Band Neutrophils % 4.0% Lymphocytes % (Manual) 5.0% Monocytes % (Manual) 3.0% Absolute Neutrophils (Manual) 8.3T/MM3 Band Neutrophils # 0.4T/MM3 Lymphocytes # (Manual) 0.5T/MM3 Monocytes # (Manual) 0.3T/MM3 Red Cell Morphology Comment Normal Turbidity < 20 Sodium Level 111MEQ/L Potassium Level 3.9MEQ/L Chloride Level 78MEQ/L Carbon Dioxide Level 21MEQ/L Anion Gap 12MEQ/L Blood Urea Nitrogen 4.0MG/DL Creatinine 0.5MG/DL Glomerular Filtration Rate Calc 169 BUN/Creatinine Ratio 8RATIO Glucose Level 135MG/DL Calculated Osmolality 214MOSM/KG Calcium Level 8.6MG/DL Total Bilirubin 1.10MG/DL Icterus Index < 2 Aspartate Amino Transf (AST/SGOT) 55U/L Alanine Aminotransferase (ALT/SGPT) 75U/L Alkaline Phosphatase 65U/L Troponin I < 0.012ng/ml Total Protein 6.6G/DL Albumin 4.2G/DL Globulin 2.4G/DL Albumin/Globulin Ratio 1.8RATIO Chemistry Specimen Hemolysis < 15 Urine Collection Type Cleancatch-midstream Urine Color Yellow Urine Turbidity Clear Urine pH 6.5 Urine Specific [place] 1.010 Urine Protein Negative Urine Glucose (UA) Negative Urine Ketones 1+ Urine Blood Trace-intact Urine Nitrite Negative Urine Bilirubin Negative Urine Urobilinogen 0.2EU/DL Urine Leukocyte Esterase Negative Urinalysis Comment Microscopic not ind. Assessment & Plan Problems: (1) Left groin pain Assessment & Plan: Review observe in a.m. see if chronic pain is improving (2) Hyponatremia with decreased serum osmolality Status: Acute Assessment & Plan: NS1 liter given in ED. Continue patient 100 ML's per hour. Check sodium every 4 hours. Labs ordered uric acid, TSH, A1c, urine osmolality, serum osmolality, urine sodium, folic acid level, thiamine level. Cardiac ultrasound is ordered. Limit free fluids to 1500 ML. Symptoms seem to come on in the last 2 weeks and may be related to start Flomax , especially if it caused him to have excessive thirst. However I am also concerned about the potential for chronic alcohol-induced hyponatremia. C was scale also be started. Full Acid and thiamine to be supplemented. DVT Prophylaxis: SCD'S Code Status Full Code, unverified Hospital Course Summary Disclaimer The hospital course summary below is not to be considered part of the above Progress Note. FAIZA KEVIN MD June 18, 2016 15:23
[2016-06-18] MEDS ORDERED: HYDROCODONE/APAP 5 mg/325 mg TABLET PO PRN (15:45)
[2016-06-18] MEDS ORDERED: PRN ORDERS MC (15:45)
[2016-06-18] MEDS ORDERED: ONDANSETRON 4mg/2ml INJECTION IV PRN (15:45)
[2016-06-18 15:48] VITALS: RESP 22
[2016-06-18] MEDS ORDERED: CHLORDIAZEPOXIDE 25 MG CAPSULE PO PRN (16:00)
[2016-06-18] MEDS ORDERED: LORAZEPAM 2 MG/ML INJECTION IV PRN (16:00)
[2016-06-18 17:35] LABS: BLOOD, URINE 1+ (NEGATIVE); COLOR,URINE YELLOW (YELLOW); LEUKOCYTE ESTERASE ,URINE NEGATIVE (NEGATIVE); NITRITE,URINE NEGATIVE (NEGATIVE); UROBILINOGEN,URINE 0.2 EU/DL (NORMAL)
[2016-06-18 17:36] LABS: BACTERIA,URINE TRACE (NEGATIVE); WBC,URINE NONE SEEN /HPF (0-5)
[2016-06-18 17:43] LABS: URIC ACID 1.9 MG/DL (3.5-8.5)
--- NOTE | 2016-06-18 18:01 | NUR ---
Comfort Patient continues to complain of being extremely hot. HR 95-105. Patient given Librium. Patient states the norco hasn't helped his pain much. Patient states he normally drinks 1-2 drinks a day.
[2016-06-18 20:00] VITALS: PULSE 97; RESP 22
[2016-06-18] MEDS: LORAZEPAM 2 MG/ML INJECTION IV PRN (20:08)
[2016-06-18] MEDS: HYDROCODONE/APAP 5 mg/325 mg TABLET PO PRN (20:09)
--- NOTE | 2016-06-18 21:00 | DI ---
Indication: ITS.REASON: air seen on CT Lumbar spine PROCEDURE: MRI LUMBAR SPINE W/O CONTRAST: Encounter: Initial Comparison: Renal CT from today Technique: Multiplanar multisequence MR imaging of the lumbar spine was performed without contrast. Findings: Alignment lumbar spine is within normal limits. No acute fracture identified. Degenerative endplate changes at multiple levels, most pronounced at L4-L5. Paraspinal soft tissues are grossly unremarkable but significantly obscured by motion artifact. Conus medullaris terminates at T12. Segmental analysis: L1-L2: Normal L2-L3: Small disk bulge without focal central canal stenosis. No neural foraminal stenosis. L3-L4: Annular disk bulge with a superimposed central protrusion causing mild central canal narrowing. Mild right and mild to moderate left neural foraminal stenosis. L4-L5: Broad-based disk bulge with superimposed central disk extrusion causing mild central canal narrowing. This accounts for the gas seen on the CT. The disk extrusion extends correction down the L5 vertebra and impinges upon the traversing left L5 nerve root. Degenerative facet disease contributing to moderate right and mild left neural foraminal stenosis. L5-S1: Minimal central bulge without central canal stenosis. No neural foraminal stenosis. Impression: No acute fracture or acute abnormality seen. Mild to moderate degenerative disk and facet disease as above with left L5 nerve root impingement. .
[2016-06-18 23:00] VITALS: BP 149/73; PULSE 94; RESP 18; TEMP 98; O2SAT 93
[2016-06-19] VITALS (7 sets, daily range): BP systolic 119–131; BP diastolic 76–88; PULSE 94–101; RESP 12–22; TEMP 96.3–96.9; O2SAT 93–97
[2016-06-19] MEDS: NORMAL SALINE 1,000 ML IV SCH (00:56)
[2016-06-19] MEDS: HYDROCODONE/APAP 5 mg/325 mg TABLET PO PRN ×2 (04:08→19:04)
--- NOTE | 2016-06-19 05:27 | NUR ---
SHIFT SUMMARY PT IS ALERT WHEN AWAKEN. ORIENTED X 2-3 AT THE START OF THE SHIFT. NOW ORIENTED TO SELF. PT DIDN'T KNOW WHAT DAY IT WAS OR WHAT STATE OR HOSPITAL HE WAS IN. PT RE-ORIENTED TO CALL FOR ASSIST TO THE BATHROOM OR TO USE THE URINAL. PT ATTEMPTS TO STAND UP NUMBER OF TIMES. BED ALARM IS ON AND HOURLY CHECKS WERE DONE. PT HAS A WALLET WITH $1200.00 IN IT. HOUSE SUP. WAS NOTIFIED, MONEY WAS COUNTED WITH PT. PT AND NURSE SIGN PAPER AND PLACED IT ON THE WALLET IN PT'S LOCK UP WITHIN A BAG. WHEN PT WAS ASKED IF HIS FAMILY KNOW WHERE HE WAS HE FIRST SAID NO. THEN LATER PT STATED HIS FAMILY KNOW. PT THEN ASKED HOW DID HE MAKE IT TO THE HOSPITAL? PT IS INCONTINENT OF URINE NUMBER OF TIMES.
[2016-06-19 05:34] LABS: HCT - HEMATOCRIT 37.2 % (41-53); HGB - HEMOGLOBIN 13.9 GM/DL (13.5-17.5); MEAN CORPUSCULAR HGB 34.6 UUG (26-34); MEAN CORPUSCULAR HGB CONC(MCHC 37.4 GM/DL (31-37); MEAN CORPUSCULAR VOLUME 92.5 UM3 (80-100); MEAN PLATELET VOLUME 9.7 UM3 (9.4-12.4); RED BLOOD COUNT 4.02 M/MM3 (4.50-5.90); WBC - WHITE BLOOD COUNT 7.5 T/MM3 (4.5-11.0)
[2016-06-19 05:42] LABS: INR 0.92 (0.76-1.04)
[2016-06-19 05:46] LABS: ANION GAP 10 MEQ/L (5-15); BUN/CREATININE RATIO 6 RATIO (6-26); CALCIUM 8.8 MG/DL (8.4-10.2); CHLORIDE 84 MEQ/L (98-107); CO2 - CARBON DIOXIDE 24 MEQ/L (22-30); CREATININE 0.5 MG/DL (0.8-1.5); GLOMERULAR FILTRATION RATE 169; GLUCOSE 87 MG/DL (75-110)
[2016-06-19 05:54] LABS: SODIUM 118 MEQ/L (134-144)
[2016-06-19 06:06] LABS: LYMPHOCYTES # (MANUAL) 0.9 T/MM3 (1-4.8); MONOCYTES # (MANUAL) 0.5 T/MM3 (0-0.8); NEUTROPHILS #(MANUAL)-ABSOLUTE 6.2 T/MM3 (1.8-7.7); TOTAL CELLS COUNTED 100 %
[2016-06-19] MEDS: THIAMINE 100 MG TABLET PO SCH (07:57)
--- NOTE | 2016-06-19 08:52 | DI ---
Indication: ITS.REASON: dizziness PROCEDURE: CT HEAD W/O CONTRAST: Encounter: Initial Comparison: None Technique: Axial CT images through the head were performed without contrast. Iterative Reconstruction dose reducing technique was utilized. FINDINGS: The ventricles are of normal size, shape, and contour for the patient's age. Probable physiologic basal ganglia calcifications. There are scattered areas of low attenuation in the white matter which most likely represent changes from chronic microvascular ischemia. The brainstem, cerebellum, and cerebral hemispheres otherwise have a normal morphology and CT attenuation. There is no evidence of midline displacement. No hemorrhage, signs of acute territorial stroke, mass effect, mass lesions, or edema is evident. The visualized portions of the skull base, midface, and calvarium demonstrate no abnormality. Mucus retention cyst in the right maxillary sinus with frontoethmoidal sinus mucosal thickening.. The tympanic and mastoid cavities appear normal. IMPRESSION: No acute intracranial abnormality or hemorrhage. There is a preliminary report by [facility]. .
--- NOTE | 2016-06-19 09:26 | DI ---
Indication: ITS.REASON: LLQ abdominal pain PROCEDURE: CT RENAL W/O CONTRAST: Encounter: Initial Comparison: None Technique: Axial CT images were performed through the abdomen and pelvis without intravenous contrast. Coronal and sagittal two-dimensional reformats. Automated Exposure Control and Iterative Reconstruction dose reducing techniques were utilized. Findings: The lung bases are grossly clear. The unenhanced contours of the liver are within normal limits. Granulomatous disease in the spleen. Pancreas is unremarkable. The adrenal glands and kidneys are grossly normal. No abdominal or pelvic adenopathy. Bladder is thick walled. No free fluid. Extensive sigmoid diverticulosis without acute diverticulitis. There is diffuse mesenteric haziness of uncertain significance and etiology. Degenerative changes in the spine. Impression: No acute disease process seen. There is a preliminary report by [facility]. .
--- NOTE | 2016-06-19 09:29 | DI ---
INDICATION: ITS.REASON: FATIGUE PROCEDURE: CHEST 2-VIEWS UPRIGHT (PA \T\ LAT) Encounter: Initial COMPARISON: None FINDINGS: The lungs are clear without evidence of focal abnormal airspace opacity. There is no pleural effusion or pneumothorax. The heart size, mediastinal contours and pulmonary vascularity are within normal limits. IMPRESSION: No acute cardiopulmonary disease. .
--- NOTE | 2016-06-19 11:15 | NUR ---
Status Patient alert and oriented to person and place. Has some confusion. Doesn't remember much of yesterday, states he isn't for sure why he was in this neighborhood. Inc of urine which is new. Breathing comfortably on RA.
--- NOTE | 2016-06-19 12:31 | PNPDOC ---
Subjective Date DATE: 06/19/16 TIME: 12:25 Subjective Pt feeling mostly improved. Tingling in hands and feet has sig improvement. Does not feel confused. He notes that he was feeling very rundown for about two weeks prior to coming in. He has had the frequently in the past as well. He will drink some pedialyte and he seems to feel better. Objective Vital Signs Vital signs Vital Signs Date Time Temp Pulse Resp B/P Pulse Ox O2 Delivery O2 Flow Rate FiO2 06/19/16 09:28 94 18 94 Room Air 06/19/16 07:07 96.9 119/76 Telemetry Rhythm: Sinus Rhythm Height (Feet): 5 Height (Inches): 6.50 Weight (Kilograms): 54.800 General General Appearance: Alert, Orientated x 3 Respiratory (Brief) Respiratory: FOUND: clear all salazar, equal bilaterally, NOT FOUND: rales, wheezes Cardiovascular (Brief) Cardiac: FOUND: regular rate, regular rhythm Capillary Refill: <2 sec Neurologic (Brief) Neurological: FOUND: DTR 2/4 all extremities, cranial 2-12 intact, motor, sensory, NOT FOUND: facial droop, ptosis Laboratory Laboratory Laboratory Tests 06/18/16 11:14 06/18/16 16:48 06/18/16 19:48 06/18/16 23:38 06/19/16 03:54 06/19/16 08:00 06/19/16 11:53 Laboratory Tests 06/18/16 11:14 06/19/16 03:54 Assessment & Plan Problems: (1) Left groin pain Assessment & Plan: no pain today. (2) Hyponatremia with decreased serum osmolality Status: Acute Assessment & Plan: Sodium from 111 to 120 overnight, which is a little fast. I held ivf and will recheck sodium this afternoon. at this point , pt may cont to improve without ivf. But will reassess. Looking to d/c tomorrow , possibly with thermotabs to supplement na. He does have a doctor in [place] and plans to visit with her. Today, he stated he did love his beer, and drinks more than originally admitted to yesterday. Still does not give an exact amount. No signs or symptoms of DT's at this time. Nursing aware. Code Status Full Code, unverified Hospital Course Summary Disclaimer The hospital course summary below is not to be considered part of the above Progress Note. FAIZA KEVIN MD June 19, 2016 12:31
--- NOTE | 2016-06-19 17:33 | NUR ---
PT MARINELLI PT HAD MARINELLI TO GO TO HOSPITAL SAFE. COUNTED BY PT AND R.N. WAS TAKEN TO CLINICAL INFORMATICS STRATEGIST GIVEN TO DEAF TEACHER. WHITE COPY WITH THEM .PINK COPY ON CHART AND YELLOW COPY GIVEN TO PT.
--- NOTE | 2016-06-19 18:22 | NUR ---
Status Patient up with assist of 1, unsteady on feet. Visitor here at bedside and states patient likes to drink a lot of beer however patient states he hasn't drank in 3 weeks. Breathing comfortably on RA. Inc of urine at times.
[2016-06-19] MEDS: LORAZEPAM 2 MG/ML INJECTION IV PRN (21:16)
--- NOTE | 2016-06-19 21:20 | NUR ---
ANXIETY: PT REQUESTED SOMETHING FOR HIS ANXIETY. ADMINISTERED PRN ATIVAN (SEE EMAR). WILL CONTINUE TO MONITOR.
[2016-06-20] VITALS (11 sets, daily range): BP systolic 113–144; BP diastolic 73–92; PULSE 90–129; RESP 12–20; TEMP 96.2–97.2; O2SAT 93–94
[2016-06-20 04:59] LABS: BASOPHILS % (AUTO) 0.2 % (0-2); EOSINOPHILS % (AUTO) 0.2 % (0-4); HCT - HEMATOCRIT 36.2 % (41-53); HGB - HEMOGLOBIN 13.1 GM/DL (13.5-17.5); IMMATURE GRANULOCYTE # (AUTO) 0.01 T/MM3 (0.00-0.03); IMMATURE GRANULOCYTE % (AUTO) 0.2 % (0.0-0.5); LYMPHOCYTES # (AUTO) 0.8 T/MM3 (1-4.8); LYMPHOCYTES % (AUTO) 15.4 % (23-45); MEAN CORPUSCULAR HGB CONC(MCHC 36.2 GM/DL (31-37); MEAN PLATELET VOLUME 9.3 UM3 (9.4-12.4); MONOCYTES # (AUTO) 0.6 T/MM3 (0-0.8); MONOCYTES % (AUTO) 10.7 % (0-9.0); NEUTROPHILS #(AUTO)-ABSOLUTE 3.9 T/MM3 (1.8-7.7); NEUTROPHILS % (AUTO) 73.3 % (33-66); RED BLOOD COUNT 3.85 M/MM3 (4.50-5.90); WBC - WHITE BLOOD COUNT 5.3 T/MM3 (4.5-11.0)
--- NOTE | 2016-06-20 05:10 | NUR ---
SHIFT SUMMARY: PT IS A&OX3, FRIENDLY AND COOPERATIVE, VITALS Q4, ON TELEMETRY, ROOM AIR, UP WITH 1 AND GATE BELT (PT IS WEAK AND HAS ARTHRITIS IN KNEES), HAS REGULAR DIET BUT WITH FLUID RESTRICTION. CALL LIGHT WITHIN REACH, BED ALARM ON.
[2016-06-20 05:38] LABS: ALBUMIN 3.4 G/DL (3.5-5.0); ALBUMIN/GLOBULIN RATIO 1.5 RATIO (1.1-2.2); ALKALINE PHOSPHATASE 50 U/L (38-126); ALT (SGPT) 59 U/L (21-72); ANION GAP 10 MEQ/L (5-15); AST (SGOT) 65 U/L (17-59); BUN/CREATININE RATIO 10 RATIO (6-26); CALCIUM 8.6 MG/DL (8.4-10.2); CHLORIDE 93 MEQ/L (98-107); CO2 - CARBON DIOXIDE 24 MEQ/L (22-30); CREATININE 0.5 MG/DL (0.8-1.5); GLOMERULAR FILTRATION RATE 169; GLUCOSE 93 MG/DL (75-110); SODIUM 127 MEQ/L (134-144); TOTAL PROTEIN 5.7 G/DL (6.3-8.2)
[2016-06-20 05:56] LABS: POTASSIUM 2.9 MEQ/L (3.6-5)
[2016-06-20] MEDS: POTASSIUM CHLORIDE 20 MEQ TABLET PO SCH ×2 (06:25→08:19)
--- NOTE | 2016-06-20 08:05 | NUR ---
LOW POTASSIUM: REC'D CALL FROM LAB THIS MORNING REGARDING PT'S LOW POTASSIUM OF 2.9 (WAS 4.0 YESTERDAY). SENT TIGER TEXT, REC'D CALL BACK FROM DR. CHAVEZ WHO ASKED ME TO PLACE AN ORDER IN FOR 20 MEQ'S OF POTASSIUM BID. ORDER PLACED AND FIRST DOSE OF MEDICATION ADMINISTERED TO PT ALONG WITH SOME CRACKERS. INFORMED DAY SHIFT RN REGARDING AM LAB RESULT AND MEDICATION ADMINISTRATION.
[2016-06-20] MEDS: THIAMINE 100 MG TABLET PO SCH (08:19)
[2016-06-20 09:57] LABS: C-REACTIVE PROTEIN 5.6 MG/L (0-9)
--- NOTE | 2016-06-20 10:10 | PNPDOC ---
MAYITO FREED V LENS BLOCK GAUGER 06/20/16 1002: Subjective Date DATE: 06/20/16 TIME: 09:57 Subjective Ham is seen this morning in follow up. He reports that he is feeling much better than he did on admission. 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 Denies feeling short of breath or having chest pain. No GI complaints. Sodium up to 129 and potassium down to 2.9. Noted to be tachycardic on examination 105. Telemetry reviewed indicates sinus tachycardic. Objective Vital Signs Vital signs Vital Signs Date Time Temp Pulse Resp B/P Pulse Ox O2 Delivery O2 Flow Rate FiO2 06/20/16 08:44 108 20 06/20/16 07:09 96.7 144/92 93 Room Air Telemetry Rhythm: Sinus Tachycardia Height (Feet): 5 Height (Inches): 6.50 Weight (Kilograms): 52.800 General General Appearance: Alert, Orientated x 3, Cooperative, No Acute Distress Eyes (Brief) Eyes: FOUND: EOMI ENMT (Brief) ENMT: FOUND: mucosa moist, normal dentition, NOT FOUND: pharnyx erythema Neck (Brief) Neck: FOUND: midline, NOT FOUND: adenopathy, carotid bruits, tracheal deviation Respiratory (Brief) Respiratory: FOUND: clear all salazar, equal bilaterally, NOT FOUND: wheezes Cardiovascular (Brief) Cardiac: FOUND: regular rate, regular rhythm, NOT FOUND: murmur, pedal edema Capillary Refill: <2 sec Abdomen (Brief) Abdominal: FOUND: BS normo active x4, soft, NOT FOUND: distended, tender Lymphatic (Brief) Lymphatic: NOT FOUND: adenopathy Musculoskeletal (Brief) Musculoskeletal: NOT FOUND: tenderness Integumentary (Brief) Integumentary: FOUND: dry, pink, warm Neurologic (Brief) Neurological: FOUND: cranial 2-12 intact Psychiatric (Brief) Psychiatric: FOUND: alert, attentive, normal affect, oriented Laboratory Laboratory Laboratory Tests 06/18/16 11:14 06/18/16 16:48 06/18/16 19:48 06/18/16 23:38 06/19/16 03:54 06/19/16 08:00 06/19/16 11:53 06/19/16 15:47 06/19/16 20:10 06/19/16 23:43 06/20/16 04:33 06/20/16 07:50 Laboratory Tests 06/18/16 11:14 06/19/16 03:54 06/20/16 04:33 Assessment & Plan Problems: (1) Hyponatremia with decreased serum osmolality Status: Acute Assessment & Plan: Sodium from 111 to 120 overnight, which is a little fast. I held ivf and will recheck sodium this afternoon. at this point , pt may cont to improve without ivf. But will reassess. Looking to d/c tomorrow , possibly with thermotabs to supplement na. He does have a doctor in [place] and plans to visit with her. Today, he stated he did love his beer, and drinks more than originally admitted to yesterday. Still does not give an exact amount. No signs or symptoms of DT's at this time. Nursing aware. (2) Hypokalemia Status: Acute (3) Tachycardia Status: Acute (4) Left groin pain Status: Resolved (5) Daily consumption of alcohol Status: Chronic Plan/Intensity of Service 06/20/16 Continue to monitor serial sodium levels. Sodium continues to increase nicely. Potassium this morning was down to 2.9. Patient received 40 milliequivalents this morning and is scheduled for 20 milliequivalents this afternoon Will recheck labs at noon today including potassium, magnesium, sodium and phosphorus levels In today to monitor patient on cardiac dean for evidence of alcohol withdrawal. Librium and Ativan as needed Recheck BMP tomorrow morning to follow electrolytes. Will discuss further plan of care with attending, Dr. Billings Code Status Full Code, unverified Hospital Course Summary Disclaimer The hospital course summary below is not to be considered part of the above Progress Note. Hospital Course Summary 06/20/16 Continue to monitor serial sodium levels. Sodium continues to increase nicely. Potassium this morning was down to 2.9. Patient received 40 milliequivalents this morning and is scheduled for 20 milliequivalents this afternoon Will recheck labs at noon today including potassium, magnesium, sodium and phosphorus levels In today to monitor patient on cardiac dean for evidence of alcohol withdrawal. Librium and Ativan as needed Recheck BMP tomorrow morning to follow electrolytes. Will discuss further plan of care with attending, Dr. AwaBERENICE Santana MD 06/20/16 [id number]: Assessment & Plan Problems: (1) Hyponatremia with decreased serum osmolality Status: Acute (2) Hypokalemia Status: Acute (3) Tachycardia Status: Acute (4) Weakness Status: Acute (5) Orthostasis Status: Acute (6) Left groin pain Status: Resolved (7) Daily consumption of alcohol Status: Chronic Assessment I have independently evaluated and examined this patient. I reviewed the chart, the patient's history, and the LENS BLOCK GAUGER's documented findings as above. We discussed and formulated the assessment and plan as above with additions as below: Mr. Ravi reports that he feels fine although subsequently describe feeling little weak in the knees and reported needing to hold onto things when he ambulates. He describes urinating frequently but nurses note small volumes when he voids. Patient is on Flomax chronically for BPH. Respirations are nonlabored and anterior lung salazar clear. Regular cardiac rhythm, S1-S2. Extremities without edema Urine sodium 157, urine osmolality pending Repeat potassium 3.7 after 40 mEq by mouth, magnesium 1.8, phosphorus pending. Minimal orthostatic drop in blood pressure however heart rate increases from 105 to 129 when patient stands. Contacted the patient's primary care physician (Dr. Stacy Koo in [place] at [phone]; fax [phone] or [phone]). Patient had lab work done at which time sodium was 129. Due to mild orthostasis and patient's description of weakness will continue IV fluids with normal saline overnight and reassess electrolytes later this evening and again in the morning. 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 He is previously been advised to drink Pedialyte so I suspect hyponatremia is chronic as suggested by recent lab work. Will forward labs and discharge summary to PCP in at discharge. CODE STATUS reviewed with patient-full code confirmed. Plan/Intensity of Service Discussed with primary care physician's office, laboratory data reviewed, discussed with nursing and case management. CODE STATUS reviewed. Greater than 35 minutes spent in patient care today with majority of it at patient's bedside and discussion. MAYITO FREED APRN June 20, 2016 10:02 BERENICE BILLINGS MD June 20, 2016 16:56
[2016-06-20 11:45] LABS: POTASSIUM 3.7 MEQ/L (3.6-5); SODIUM 129 MEQ/L (134-144)
[2016-06-20 11:48] LABS: MAGNESIUM 1.8 MG/DL (1.6-2.3)
[2016-06-20] MEDS ORDERED: POTASSIUM CHLORIDE 20 MEQ TABLET PO ONE (12:30)
--- NOTE | 2016-06-20 12:55 | NUR ---
VERNON LANZA IS 5. Addendum: 06/20/16 at 1255 by ALMA DELIA MACIAS SW Amended: Links added.
--- NOTE | 2016-06-20 12:56 | NUR ---
CM SPOKE WITH PT, INTRODUCED SELF, EXPLAINED ROLE. PT STATED HE LIVES IN [place], [place] (WHICH IS [place]AR [place]). HE SAID HE IS EAGER TO LEAVE THE HOSPITAL AND RETURN HOME. HE SAID HE IS DRIVING TO [place], AND HIS CAR IS IN [place]. HE SAID WHEN HE IS RELEASED, HE WILL CALL FAMILY TO PICK HIM UP AND DRIVE HIM TO [place] TO GET HIS CAR. PT DENIED HAVING ANY DC NEEDS OR CONCERNS. ENCOURAGED HIM TO CALL IF QUESTIONS DO ARISE. PT STATED HE WILL. HE STATED SEVERAL TIMES THAT HE HOPES HE CAN BE RELEASED TODAY. HE SAID HIS DOCTOR IS DR. AJIT ELIAS. THIS WORKER ASKED HIM ABOUT HIS ALCOHOL DRINKING. HE SAID HE DRINKS 1-2 BEERS MOST EVERY EVENING. HE SAID HE DRINKS RECREATIONALLY AND IT IS NOT A PROBLEM FOR HIM. Addendum: 06/20/16 at 1300 by ALMA DELIA ROSALES Amended: Links added.
[2016-06-20] MEDS: NORMAL SALINE 1,000 ML IV SCH (14:34)
--- NOTE | 2016-06-20 18:41 | NUR ---
SHIFT SUMMARY PT ALERT AND ORIENTED X3. PT ON RA, DENIES SOA. REPORTS BILATERAL KNEE PAIN 3/10, DENIES NEED FOR PAIN MEDICATION. REPOSITIONS SELF FREQUENTLY. UP WITH STAND BY ASSIST, GAIT BELT. PT AMBULATED IN HALLWAY TODAY, UNSTEADY AT TIMES. PT REPORTS, 'I JUST FEEL SO WEAK. I DON'T WANT MY KNEES TO GIVE OUT.' UP IN RECLINER FOR MEALS. FREQUENT, ADEQUATE URINE OUTPUT. BM THIS SHIFT. IVF INFUSING ORDERED INTO LEFT FOREARM. PT ABLE TO MAKE NEEDS KNOWN. PT EXPRESSES UNDERSTANDING OF FLUID RESTRICTION. ALSO EXPRESSES UNDERSTANDING OF SHIFTING WEIGHT WHILE IN BED TO PREVENT SKIN BREAKDOWN. BED ALARM ON, CALL LIGHT WITHIN REACH.
[2016-06-20] MEDS: HYDROCODONE/APAP 5 mg/325 mg TABLET PO PRN (20:51)
[2016-06-20] MEDS: LORAZEPAM 2 MG/ML INJECTION IV PRN (20:52)
[2016-06-21] VITALS (7 sets, daily range): BP systolic 120–147; BP diastolic 86–95; PULSE 86–115; RESP 18; TEMP 96.3–97.1; O2SAT 91–97
[2016-06-21] MEDS: NORMAL SALINE 1,000 ML IV SCH ×2 (00:34→10:30)
[2016-06-21 05:02] LABS: ALBUMIN 3.4 G/DL (3.5-5.0); ANION GAP 9 MEQ/L (5-15); BUN/CREATININE RATIO 8 RATIO (6-26); CHLORIDE 99 MEQ/L (98-107); CO2 - CARBON DIOXIDE 24 MEQ/L (22-30); CREATININE 0.6 MG/DL (0.8-1.5); GLOMERULAR FILTRATION RATE 137; GLUCOSE 100 MG/DL (75-110); MAGNESIUM 1.8 MG/DL (1.6-2.3); PHOSPHORUS 3.4 MG/DL (2.5-4.5); POTASSIUM 3.7 MEQ/L (3.6-5); SODIUM 132 MEQ/L (134-144)
--- NOTE | 2016-06-21 08:00 | NUR ---
Received report Patient is alert and oriented. Denies pain this morning. Patient is up to chair for breakfast this morning. Ns is running at 100ml/hr per LFA peripheral IV. no concerns noted at this time.
--- NOTE | 2016-06-21 08:00 | NUR ---
RECEIVED REPORT PATIENT IS ALERT AND ORIENTED. UP IN ROOM READY FRO BREAKFAST. NORMAL SALINE RUNNING AT 100 ML/HR PER PERIPHERAL IV. DENIES PAIN AND ANY OTHER CONCERNS. PATIENT IS HOPING TO DISCHARGE TO HOME TODAY.
--- NOTE | 2016-06-21 09:10 | NUR ---
SHIFT SUMMARY PT IS A/O X 3. UP WITH 1 ASSIST TO USE THE URINAL OR TO WALK TO THE BATHROOM. PT'S GAIT IS UNSTEADY AT TIMES. REVIEWED WITH PT TO CHANGE POSITION FOR PAIN. PT REQUEST PAIN MEDICATION FOR BILAT KNEE PAIN AND BACK. NORCO 5 MG X 2 TABS GIVEN, AND ATIVAN FOR INCREASE ANXIETY. PT CALLED AT TIMES FOR ASSIST. PT ALSO WOULD STAND UP FROM THE BED SITTING OFF THE BED ALARM.
[2016-06-21] MEDS: THIAMINE 100 MG TABLET PO SCH (09:11)
--- NOTE | 2016-06-21 10:27 | NUR ---
[facility] CM VISITED PT. CM EXPLAINED ROLE AND PROVIDED CONTACT INFORMATION. PT PLANS TO RETURN HOME TO [facility] STAY. PT EXPLAINED THAT HE WAS VISITED FAMILY IS SUNIL WHEN HE BECAME WEAK AND UNABLE TO COMPLETE HIS JOURNEY BACK TO . PT DENIES NEEDS AT THIS TIME BUT IS AWARE TO CONTACT CM IF NEEDS [facility].
--- NOTE | 2016-06-21 13:35 | DSPDOC ---
General Date Date DATE: 06/21/16 TIME: 13:26 Attending Physician Sanjuana Billings MD Admitting Physician Sanjuana Billings MD Consulting Physician Admitting Diagnosis Hyponatremia Discharge Diagnosis Hyponatremia, probable SIADH Hypokalemia Weakness Orthostasis BPH Laboratory Laboratory Tests Test 06/20/16 04:33 06/20/16 07:50 06/20/16 11:31 06/20/16 20:23 White Blood Count 5.3T/MM3 (4.5-11.0) Red Blood Count 3.85M/MM3 (4.50-5.90) Hemoglobin 13.1GM/DL (13.5-17.5) Hematocrit 36.2% (41-53) Mean Corpuscular Volume 94.0UM3 (80-100) Mean Corpuscular Hemoglobin 34.0UUG (26-34) Mean Corpuscular Hemoglobin Concent 36.2GM/DL (31-37) RDW Standard Deviation 40.8FL (36.9-50.2) Platelet Count 186T/MM3 (130-400) Mean Platelet Volume 9.3UM3 (9.4-12.4) Immature Granulocyte % (Auto) 0.2% (0.0-0.5) Neutrophils (%) (Auto) 73.3% (33-66) Lymphocytes (%) (Auto) 15.4% (23-45) Monocytes (%) (Auto) 10.7% (0-9.0) Eosinophils (%) (Auto) 0.2% (0-4) Basophils (%) (Auto) 0.2% (0-2) Absolute Immature Granulocyte (auto 0.01T/MM3 (0.00-0.03) Absolute Neutrophils (auto) 3.9T/MM3 (1.8-7.7) Absolute Lymphocytes (auto) 0.8T/MM3 (1-4.8) Absolute Monocytes (auto) 0.6T/MM3 (0-0.8) Absolute Eosinophils (auto) 0.0T/MM3 (0-0.5) Absolute Basophils (auto) 0.0T/MM3 (0-0.2) Turbidity < 20 (0-20) Sodium Level 127MEQ/L (134-144) 129MEQ/L (134-144) 129MEQ/L (134-144) 131MEQ/L (134-144) Potassium Level 2.9MEQ/L (3.6-5) 3.7MEQ/L (3.6-5) Chloride Level 93MEQ/L (98-107) Carbon Dioxide Level 24MEQ/L (22-30) Anion Gap 10MEQ/L (5-15) Blood Urea Nitrogen 5.0MG/DL (9-20) Creatinine 0.5MG/DL (0.8-1.5) Glomerular Filtration Rate Calc 169 BUN/Creatinine Ratio 10RATIO (6-26) Glucose Level 93MG/DL (75-110) Calculated Osmolality 242MOSM/KG (261-280) Calcium Level 8.6MG/DL (8.4-10.2) Total Bilirubin 0.60MG/DL (0.20-1.30) Icterus Index < 2 (0-7) Aspartate Amino Transf (AST/SGOT) 65U/L (17-59) Alanine Aminotransferase (ALT/SGPT) 59U/L (21-72) Alkaline Phosphatase 50U/L (38-126) C-Reactive Protein 5.6MG/L (0-9) Total Protein 5.7G/DL (6.3-8.2) Albumin 3.4G/DL (3.5-5.0) Globulin 2.3G/DL (2.4-3.6) Albumin/Globulin Ratio 1.5RATIO (1.1-2.2) Chemistry Specimen Hemolysis 39 (0-25) < 15 (0-25) Phosphorus Level 3.0MG/DL (2.5-4.5) Magnesium Level 1.8MG/DL (1.6-2.3) Test 06/21/16 04:33 Turbidity < 20 (0-20) Sodium Level 132MEQ/L (134-144) Potassium Level 3.7MEQ/L (3.6-5) Chloride Level 99MEQ/L (98-107) Carbon Dioxide Level 24MEQ/L (22-30) Anion Gap 9MEQ/L (5-15) Blood Urea Nitrogen 5.0MG/DL (9-20) Creatinine 0.6MG/DL (0.8-1.5) Glomerular Filtration Rate Calc 137 BUN/Creatinine Ratio 8RATIO (6-26) Glucose Level 100MG/DL (75-110) Calculated Osmolality 252MOSM/KG (261-280) Calcium Level 9.0MG/DL (8.4-10.2) Phosphorus Level 3.4MG/DL (2.5-4.5) Magnesium Level 1.8MG/DL (1.6-2.3) Icterus Index < 2 (0-7) Albumin 3.4G/DL (3.5-5.0) Chemistry Specimen Hemolysis < 15 (0-25) On admission 06/18 white count 9.4, hemoglobin 13.7, para 214,000; Sodium 111, Chloride 78, BUN 4, Creatinine 0.5, Uric Acid 1.9. ALT 75, AST 55. TSH 0.71, Folic Acid 9.1, and Thiamine Level Pending. Urine sodium 157, urine osmolality 573 on 06/18 Radiology Chest x-ray on admission demonstrated no acute cardiopulmonary disease. CT of the head demonstrated probable physiologic basal ganglia calcifications. Scattered areas of low attenuation in the white matter consistent with chronic microvascular ischemia. No evidence of acute stroke, mass effect, or hemorrhage. CT of the lumbar spine without contrast revealed mild degenerative disc disease greatest at L4-L5 where broad-based disc bulge resulting in mild central canal narrowing and impinged on the left L5 nerve root. Moderate right and mild left neuroforaminal stenosis described at this level. Mild right and mild to moderate left neuroforaminal stenosis reported L3-L4. Renal CT on 06/18 demonstrated extensive diverticulosis without diverticulitis, the bladder wall was thickened, degenerative changes in the spine were seen but there is no acute pelvic/renal pathology. History of Present Illness 60-year-old gentleman with weakness and confusion. He was trying to drive home to [place], noted that his hands and feet were tingling and that he felt like he is going to pass out. He stopped to get gas and could not get out of the car due to weakness. He was brought into ED by EMS. Patient denies any fever or chills, no recent illness. She did however have a physical exam with his physician about 2 weeks ago and was started on Flomax for enlarged prostate , he is being worked up for prostate cancer at this time. He also started an herbal supplement called "Ageless men". He does have some nausea but denies any vomiting. Left-sided lower quadrant into pelvis is painful, radiating down towards his groin. This is the same place had a previous hernia repair and feels the same as the previous hernia . He is extremely thirsty right now and is asking for a glass of water. He states that he feels like he has [place] has had increase how much he drinks. He initially denied drinking alcohol, but ultimately admitted to drinking a sixpack or sixpack and a half per week. Hospital Course 06/18/16 Mr. Ravi was admitted with hyponatremia. Additional labs ordered including uric acid, TSH, urine osmolality and sodium, and thiamine/folic acid levels. Free water limited to 1500 mL daily and normal saline supplemented. 06/19/16 Sodium improved to 120 overnight with fluid restriction and saline administration. Clinically patient feels better. Reduction in alcohol consumption counseled, no sign of withdrawal. Continue current care and monitor sodium frequently. 06/20/16 Continue to monitor serial sodium levels. Sodium continues to increase nicely. Potassium this morning was down to 2.9. Potassium replaced orally, IV fluids resumed due to mild orthostasis present. Recent laboratory data in the patient's primary care physician's office suggest chronic hyponatremia as sodium was 129 on 06/09 and he is previously been advised to drink Pedialyte. Urine sodium 129-inappropriately concentrated. Patient reports continued weakness despite improvement from admission, physical therapy to evaluate. 06/21/16 Mr. Ravi reports he feels somewhat stiff from lying in bed more than usual the past couple of days but otherwise feels back to normal. He's having some minor back and knee pain but was able to ambulate using a walker when physical therapy evaluated earlier today. He was able to go up and down stairs with therapy without difficulty and was cleared for discharge home with recommendation that he ambulate with a walker and continue therapy as an outpatient several times a week for strengthening. Patient denies lightheadedness at this time has had no palpitations. On examination the patient is alert and fully cooperative. No tremors present. Respirations are nonlabored and cardiac rhythm regular. No orthostasis was present this morning although low-grade tachycardia persisted. Most recent heart rate was 93 after initial heart rates of just above 100. Sodium has improved to 132 with remainder of electrolytes normal this morning. Thiamine level is pending. Stable for discharge at this time. Patient is asked to follow-up with his primary care physician within one week to discuss coordinating outpatient physical therapy and for reassessment of electrolytes. 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 >30 minutes spent on patient care and discharge care coordination today on the date of discharge. -- Problems: (1) Hyponatremia with decreased serum osmolality Status: Resolved Assessment & Plan: Urine sodium 157, urine osmolality 573; suggestive of SIADH (2) Hypokalemia Status: Resolved (3) Tachycardia Status: Resolved (4) Weakness Status: Resolved (5) Orthostasis Status: Resolved (6) Left groin pain Status: Resolved (7) Daily consumption of alcohol Status: Chronic (8) BPH (benign prostatic hyperplasia) Status: Chronic Code Status Full Code, unverified Home Meds Reported Medications [Ageless Men] No Conflict Check, 1 TAB PO DAILY 06/18/16 Tamsulosin HCl (Flomax) 0.4 Mg Capsule, 0.4 MG PO HS, CAP Take 1 capsule, by mouth, one time a day at BEDTIME. 06/18/16 Face to Face Encounter I met with patient on the day of dismissal and discussed follow up appointments , medications, and safety plan. Discharge Disposition Home SANJUANA BILLINGS MD June 21, 2016 13:31
--- NOTE | 2016-06-21 16:00 | NUR ---
DISCHARGED PATIENT DISCHARGE AND MEDICATION INSTRUCTIONS ARE GIVEN PATIENT HAS NO FURTHER QUESTIONS AT THIS TIME. PATIENT HAS FAMILY WAITING OUTSIDE FOR TRANSPORTATION. PATIENT IS WHEEL TO FAMILY CAR AT THE THE MAIN ENTRANCE. PATIENT COLLECTS HIS PERSONAL BELONGING FROM THE RAIL MAINTENANCE WORKER ON HIS WAY OUT. NO CONCERNS REPORTED.
--- NOTE | 2016-06-22 15:37 | NUR ---
CM CM LVM
--- NOTE | 2016-06-27 15:29 | NUR ---
CM CM LVM
--- NOTE | 2016-06-27 15:30 | NUR ---
CM CM LEFT VM ON 06/24/16
== END 2016-06-21 15:40 | disposition home or self-care (01) | DRG 641 ==
LOC: ED 11:28 → EDHOLD 15:10 → MED 15:20
PROVIDERS: ADMIT Family Medicine; ATTEND Internal Medicine
DX: E87.1 Hypo-osmolality and hyponatremia (principal); R10.32 Left lower quadrant pain; E87.6 Hypokalemia; R00.0 Tachycardia, unspecified; R53.1 Weakness; F10.10 Alcohol abuse, uncomplicated; F17.200 Nicotine dependence, unspecified, uncomplicated; N40.0 Benign prostatic hyperplasia without lower urinary tract symptoms
CPT/HCPCS: 36415; 80048; 80053; 80069; 81001; 81003; 82746; 83036; 83735; 83935; 84100; 84132; 84295; 84300; 84425; 84443; 84484; 84550; 85025; 85610; 86140; 93005; 96361; 96374; 96375; 99406